=== PATIENT | female | born 1940 | race Caucasian/White ===

== ENCOUNTER 2020-07-11 11:01 | Inpatient (IN) | payer MEDICAID ==
[~2020-07-11] VITALS: Ht 162.6 cm; Wt 68.0 kg
[~2020-07-11 11:01] MED LIST: BENADRYL25 MG; COREG6.25 MG PO; DETROL LA4 MG; GLUCOPHAGE XR500 MG; K-DUR10 MEQ; LIPITOR40 MG; LOTENSIN40 MG; MACROBID 100 M100 M1 PO; NEURONTIN 300M300 M2 PO; PROPYLTHIOURACL; RANITIDINE 150150 M1; TRIAMTERENE-HC1 EAC1
[2020-07-11 11:10] VITALS: BP 183/73
[2020-07-11] MEDS ORDERED: TRAMADOL 50 MG50 MG PO (11:23)
[2020-07-11] MEDS ORDERED: PROPYLTHIOURACI50 MG PO (11:23)
[2020-07-11] MEDS ORDERED: SENNA-DOCUSATE1 EAC1 PO (11:23)
[2020-07-11] MEDS ORDERED: AMITIZA 24 MCG24 MC1 PO (11:24)
[2020-07-11] MEDS ORDERED: PULMICORT0.25 MG/2 INH (11:24)
[2020-07-11] MEDS ORDERED: ACETAMINOPHEN325 MG PO (11:24)
[2020-07-11] MEDS ORDERED: OMEPRAZOLE40 MG PO (11:24)
[2020-07-11 11:48] LABS: HEMATOCRIT 33.8 % (37.0-47.0); HEMOGLOBIN 10.9 gm/dL (12.0-15.0); MCH 27.6 pg (26.0-34.0); MCHC 32.4 g/dL (28.0-37.0); MCV 85.2 fL (80.0-100.0); NUCLEATED RBCS 0 /100WBC; PLATELET COUNT* 269 thou/uL (150-400); RBC 3.97 mil/uL (4.20-5.00); RDW-CV 15.1 % (10.5-14.5); WBC 7.2 thou/uL (4.0-11.0)
[2020-07-11 12:01] LABS: CALCIUM 8.9 mg/dL (8.5-10.1); CREATININE 0.8 mg/dL (0.6-1.3)
[2020-07-11 12:02] LABS: APTT 26.5 Seconds (25.0-31.3); PROTIME 10.9 Seconds (9.20-11.50)
[2020-07-11 12:20] LABS: ALBUMIN 3.2 g/dL (3.4-5.0); TOTAL BILIRUBIN 0.5 mg/dL (<0.1-1.0)
[2020-07-11 12:22] LABS: ABSOLUTE LYMPHOCYTES 2.7 thou/uL (0.8-5.3); ABSOLUTE MONOCYTES 0.6 thou/uL (0.0-1.2); ABSOLUTE NEUTROPHILS 2.9 thou/uL (1.6-8.1); PLATELET ESTIMATE ADEQUATE
[2020-07-11 13:30] LABS: PCO2 39.9 mmHg (35.0-45.0); PO2 60.7 mmHg (75.0-100.0); pH 7.423 (7.340-7.450)
[2020-07-11 14:53] LABS: URINE BILIRUBIN NEGATIVE (Negative); URINE BLOOD TRACE (Negative); URINE CLARITY CLEAR; URINE COLOR YELLOW; URINE GLUCOSE-RANDOM NEGATIVE (Negative); URINE KETONES NEGATIVE (Negative); URINE LEUKOCYTES-REFLEX NEGATIVE (Negative); URINE NITRITE-REFLEX NEGATIVE (Negative); URINE PROTEIN NEGATIVE (Negative); URINE SPECIFIC GRAVITY 1.015 (1.005-1.030); URINE UROBILINOGEN 0.2 E.U./dl (0.2-1.0)
[2020-07-11 15:29] VITALS: BP 145/68
[2020-07-11 20:00] VITALS: BP 159/67
[2020-07-12] VITALS: BP 145/74
[2020-07-12 00:53] LABS: HEMOGLOBIN 11.4 gm/dL (12.0-15.0); MCHC 33.4 g/dL (28.0-37.0); MCV 83.9 fL (80.0-100.0); MPV 7.9 fl. (7.2-11.1); RBC 4.06 mil/uL (4.20-5.00); RDW-CV 14.8 % (10.5-14.5); WBC 5.4 thou/uL (4.0-11.0)
[2020-07-12 01:05] LABS: ALBUMIN 3.1 g/dL (3.4-5.0); MAGNESIUM 1.6 mg/dL (1.8-2.4); POTASSIUM 3.6 mmol/L (3.5-5.1); TOTAL BILIRUBIN 0.4 mg/dL (<0.1-1.0); TOTAL PROTEIN 6.9 g/dL (6.4-8.2)
[2020-07-12 04:00] VITALS: BP 135/62
[2020-07-12 09:09] VITALS: BP 165/62
--- NOTE | 2020-07-12 09:22 | EKG ---
[place] [address] ELECTROCARDIOGRAM REPORT Name: GLEN SÁNCHEZ Room: [address] ADM IN M.R.#: [id number] Admission: 07/11/20 Attend Phys: Dasha Hernandez, Discharge: Date of : 40 Date of Service: 07/11/20 1115 Report #: [id number] THIS REPORT FOR: //name// [facility] ED Test Date: 2020-07-11 Test Time: 11:15:28 Pat Name: GLEN SÁNCHEZ Department: Room: [facility] Gender: F Crew Clerk: CCD : 1940 Requested By: Eric Cagle Order Number: [id number] MD: Beau Ireland Measurements Intervals [place] Rate: 62 P: -26 MD: 216 QRS: -7 QRSD: 103 T: 50 QT: 403 QTc: 410 Interpretive Statements Sinus rhythm Borderline prolonged MD interval Low voltage, precordial leads Baseline wander in lead(s) V1 Compared to ECG 04/16/2009 21:20:24 Low QRS voltage now present Electronically Signed On 07-12-2020 9:22:24 PRE SCHOOL MANAGER by Beau Ireland [email or web address] <ELECTRONICALLY SIGNED> By: Beau Ireland MD, FACC 07/12/20 0922 1115 1115 Beau Ireland MD, FAC /EPI
--- NOTE | 2020-07-12 13:49 | EKG ---
[place] [address] ELECTROCARDIOGRAM REPORT Name: GLEN SÁNCHEZ Room: [address] ADM IN M.R.#: [id number] Admission: 07/11/20 Attend Phys: Dasha Hernandez, Discharge: Date of : 40 Date of Service: 07/11/20 1856 Report #: [id number] THIS REPORT FOR: //name// [facility] Test Date: 2020-07-11 Test Time: 18:56:45 Pat Name: GLEN SÁNCHEZ Department: Room: [address] Gender: F Panel Laminator: UNKNOWN : 1940 Requested By: Dasha Hernandez Order Number: [id number] MD: Beau Ireland Measurements Intervals [place] Rate: 79 P: -19 ID: 219 QRS: -14 QRSD: 104 T: 7 QT: 388 QTc: 445 Interpretive Statements Sinus rhythm Borderline prolonged ID interval Compared to ECG 07/11/2020 11:15:28 No significant changes Electronically Signed On 07-12-2020 13:49:19 ENERGY CONSERVATION SPECIALIST by Beau Ireland [email or web address] <ELECTRONICALLY SIGNED> By: Beau Ireland MD, FACC 07/12/20 1349 1856 1856 Beau Ireland MD, FAC /EPI
[2020-07-12 15:04] VITALS: BP 149/64
--- NOTE | 2020-07-12 16:33 | 2DMMODE ---
[place] [address] 2 D/M-MODE ECHOCARDIOGRAM Name: GLEN SÁNCHEZ Room: [address] IN .R.#: [id number] Admission: 07/11/20 Attend Phys: Dasha Hernandez, Discharge: Date of : 40 Date of Service: 07/12/20 1632 Report #: [id number] THIS REPORT FOR: cc: Ed Conrad MD, Usman MD Blick,Beau Riggins MD [facility] ~ APPROVED REPORT Study performed: 07/12/2020 14:50:51 EXAM: Comprehensive 2D, Doppler, and color-flow Echocardiogram Patient Location: In-Patient Room #: 118 Status: routine BSA: 1.73 HR: 71 bpm BP: 165/62 mmHg Rhythm: NSR Other Information Study Quality: Good Indications Arrhythmia 2D Dimensions IVSd: 10.29 (7-11mm) LVOT Diam: 21.81 (18-24mm) LVDd: 37.38 mm PWd: 7.92 (7-11mm) Ascending Ao: 34.18 (22-36mm) LVDs: 20.90 (25-40mm) Aortic Root: 35.66 mm Volumes Left Atrial Volume (Systole) LA ESV Index: 20.32 mL/m2 Aortic Valve AoV Peak Neo.: 1.14 m/s AO Peak Gr.: 5.22 mmHg LVOT Max P.99 mmHg AO Mean Gr.: 3.01 mmHg LVOT Mean P.34 mmHg LVOT Max V: 0.86 m/s AO V2 VTI: 24.01 cm LVOT Mean V: 0.52 m/s MAGGIE (VTI): 3.20 cm2 LVOT V1 VTI: 20.56 cm AI [place]: 1.63 m/s2 [place] [address] 2 D/M-MODE ECHOCARDIOGRAM Name: GONZALOGLEN Room: [address] IN M.R.#: [id number] Admission: 07/11/20 Attend Phys: Dasha Hernandez, Discharge: Date of : 40 Date of Service: 07/12/20 1632 Report #: [id number] AI PHT: 563.77 ms Mitral Valve E/A Ratio: 0.63 MV Decel. Time: 296.29 ms MV E Max Neo.: 0.66 m/s MV PHT: 85.92 ms MVA (PHT): 2.56 cm2 TDI E/Lateral E': 7.33 E/Medial E': 6.60 Medial E' Neo.: 0.10 m/s Lateral E' Neo.: 0.09 m/s Pulmonary Valve PV Peak Neo.: 0.93 m/s PV Peak Gr.: 3.47 mmHg Left Ventricle The left ventricle is normal size. There is normal LV segmental wall motion. There is normal left ventricular wall thickness. Left ventricular systolic function is normal. The left ventricular ejection fraction is within the normal range. LVEF is 55-60%. Grade I - abnormal relaxation pattern. Right Ventricle The right ventricle is normal size. The right ventricular systolic function is normal. Atria The left atrium size is normal. The right atrium size is normal. Aortic Valve The aortic valve is normal in structure. Mild aortic regurgitation. There is no aortic valvular stenosis. Mitral Valve The mitral valve is normal in structure. Trace mitral regurgitation. No evidence of mitral valve stenosis. Tricuspid Valve The tricuspid valve is normal in structure. Trace tricuspid regurgitation. No pulmonary hypertension. Pulmonic Valve The pulmonary valve is normal in structure. [place] [address] 2 D/M-MODE ECHOCARDIOGRAM Name: GLEN SÁNCHEZ Room: [address] IN [facility]#: [id number] Admission: 07/11/20 Attend Phys: Dasha Hernandez, Discharge: Date of : 40 Date of Service: 07/12/20 1632 Report #: [id number] regurgitation. Great Vessels The aortic root is normal in size. IVC is normal in size and collapses >50% with inspiration. Pericardium There is no pericardial effusion. <Conclusion> Left ventricular systolic function is normal. The left ventricular ejection fraction is within the normal range. <ELECTRONICALLY SIGNED> By: Beau Ireland MD, FACC 07/12/20 1632 163 163 Beau Ireland MD, FACC /INF
[2020-07-12 18:16] VITALS: BP 142/83
[2020-07-13 06:03] VITALS: BP 151/70
[2020-07-13 06:33] LABS: ABSOLUTE BASOPHILS 0.1 thou/uL (0.0-0.2); ABSOLUTE EOSINOPHILS 0.2 thou/uL (0.0-0.7); ABSOLUTE LYMPHOCYTES 4.8 thou/uL (0.8-5.3); ABSOLUTE MONOCYTES 0.7 thou/uL (0.0-1.2); ABSOLUTE NEUTROPHILS 5.5 thou/uL (1.6-8.1); BASOPHILS 0.7 %; EOSINOPHILS 1.8 %; HEMATOCRIT 32.9 % (37.0-47.0); HEMOGLOBIN 10.9 gm/dL (12.0-15.0); LYMPHOCYTES 42.5 %; MCH 27.7 pg (26.0-34.0); MCHC 33.1 g/dL (28.0-37.0); MCV 83.7 fL (80.0-100.0); MONOCYTES 6.3 %; MPV 8.3 fl. (7.2-11.1); NUCLEATED RBCS 0 /100WBC; PLATELET COUNT* 298 thou/uL (150-400); POLYS 48.7 %; RBC 3.94 mil/uL (4.20-5.00); RDW-CV 15.2 % (10.5-14.5); WBC 11.3 thou/uL (4.0-11.0)
[2020-07-13 06:43] LABS: ALBUMIN 3.2 g/dL (3.4-5.0); CALCIUM 9.5 mg/dL (8.5-10.1); CREATININE 0.9 mg/dL (0.6-1.3); MAGNESIUM 1.6 mg/dL (1.8-2.4); TOTAL BILIRUBIN 0.5 mg/dL (<0.1-1.0); TOTAL PROTEIN 6.9 g/dL (6.4-8.2)
[2020-07-13 08:00] VITALS: BP 163/71
[2020-07-13] MEDS ORDERED: VENTOLIN HFA 1818 GM INH (09:42)
[2020-07-13] MEDS ORDERED: AZITHROMYCIN 2250 MG PO (09:42)
[2020-07-13] MEDS ORDERED: CEFDINIR300 MG PO (09:42)
[2020-07-13] MEDS ORDERED: PREDNISONE 10 M10 M1 PO (09:45)
[2020-07-13 14:50] VITALS: BP 163/71
--- NOTE | 2020-07-14 12:25 | CON ---
[address] [address] CONSULTATION Name: GLEN SÁNCHEZ Room: [address] IN M.R.#: [id number] Admission: 07/11/20 Attend Phys: Dasha Hernandez MD Discharge: 07/13/20 Date of : 40 Report #: [id number] THIS REPORT FOR: cc: Ed Conrad MD, Usman MD ~ Beau Ireland MD [facility] DATE OF SERVICE: 07/12/2020 CARDIOLOGY CONSULTATION HISTORY OF PRESENT ILLNESS: The history is obtained from the chart. Unfortunately, the patient speaks very little Vietnamese. There are no family members available. According to the chart, the patient was brought to the Emergency Room yesterday by family members. She apparently had been short of breath, coughing and had loose stools. She was given an inhaler by her primary care physician and was not getting worse. She denied any fever, sore throat, chest pain, edema, syncope. PAST MEDICAL HISTORY: She has a history of diabetes and hypertension. MEDICATIONS: Include carvedilol, Dyazide, Lipitor, benazepril, Neurontin, omeprazole, Pulmicort, metformin. ALLERGIES: She has no known drug allergies. SOCIAL HISTORY: Apparently, she is . She is originally from [place]. No history of smoking. REVIEW OF SYSTEMS: There is no history of stroke, liver disease, kidney disease, cancer, psychiatric illness. PHYSICAL EXAMINATION: GENERAL: Revealed an elderly female, who appeared in no distress. VITAL SIGNS: Showed blood pressure 140/70, pulse 60. She is afebrile. HEENT: She was anicteric. Conjunctivae are pink. Mucous membranes moist. NECK: Veins do not appear distended. No carotid bruits. Neck supple. CHEST: Revealed expiratory wheezes. CARDIOVASCULAR: Regular rate and rhythm. ABDOMEN: Soft. EXTREMITIES: Had no edema. Dorsalis pedis pulse 1+ bilaterally. SKIN: Cool and dry. NEUROLOGIC: Nonfocal. Her ECG on admission showed a sinus rhythm, normal QT interval, [place] [address] CONSULTATION Name: GLEN SÁNCHEZ Room: [address] IN [facility].#: [id number] Admission: 07/11/20 Attend Phys: Dasha Hernandez MD Discharge: 07/13/20 Date of : 40 Report #: [id number]-segment changes. Her workup, she had a portable chest x-ray in the Emergency Room that showed possible infiltrate, normal heart size. LABORATORY DATA: Sodium 131, creatinine 1.0. Liver function studies were normal. Troponins all 0.06. BNP 306. White blood cell count 5.4, hematocrit 34. IMPRESSION AND RECOMMENDATIONS: 1. Pneumonia. 2. Abnormal monitor. On the monitor, the patient appeared to have a wide complex tachycardia, although on further review, this appears to be artifact. Recommend echocardiogram. 3. Diabetes. 4. Hypertension. The patient is on JASON inhibitor and beta jessica. 5. Hyperlipidemia. The patient is on a statin drug. <ELECTRONICALLY SIGNED> By: Beau Ireland MD, FACC 07/14/20 1225 1409 1940Dathong Ireland MD, FAC /nt
== END 2020-07-13 15:10 | disposition home or self-care (01) | DRG 177 ==
LOC: M.ERS 11:01 → M.ORTHSURG 14:05 → M.TBA-ER 14:05 → M.ORTHSURG 15:32
PROVIDERS: Emergency Medicine Emergency Medical Services; ADMIT Internal Medicine; ATTEND Internal Medicine
DX: J15.6 Pneumonia due to other Gram-negative bacteria (principal); J96.01 Acute respiratory failure with hypoxia; J45.901 Unspecified asthma with (acute) exacerbation; I10 Essential (primary) hypertension; E78.5 Hyperlipidemia, unspecified; Z20.822 Contact with and (suspected) exposure to COVID-19; E11.9 Type 2 diabetes mellitus without complications; E78.00 Pure hypercholesterolemia, unspecified; K21.9 Gastro-esophageal reflux disease without esophagitis; Z79.899 Other long term (current) drug therapy; Z79.84 Long term (current) use of oral hypoglycemic drugs

== ENCOUNTER 2020-10-14 19:16 | Inpatient (IN) | payer MEDICAID ==
[~2020-10-14] VITALS: Ht 160 cm; Wt 66.7 kg
[~2020-10-14 19:16] MED LIST changes: +ACETAMINOPHEN325 MG PO; +AMITIZA 24 MCG24 MC1 PO; +AZITHROMYCIN 2250 MG PO; +CEFDINIR300 MG PO; +OMEPRAZOLE40 MG PO; +PREDNISONE 10 M10 M1 PO; +PROPYLTHIOURACI50 MG PO; +PULMICORT0.25 MG/2 INH; +SENNA-DOCUSATE1 EAC1 PO; +TRAMADOL 50 MG50 MG PO; +VENTOLIN HFA 1818 GM INH
[2020-10-14 19:37] VITALS: BP 165/71
[2020-10-14 19:55] LABS: HEMATOCRIT 30.6 % (37.0-47.0); MCH 26.7 pg (26.0-34.0); MCHC 32.5 g/dL (28.0-37.0); MCV 82.3 fL (80.0-100.0); MPV 8.8 fl. (7.2-11.1); NUCLEATED RBCS 0 /100WBC; PLATELET COUNT* 273 thou/uL (150-400); RBC 3.73 mil/uL (4.20-5.00); RDW-CV 16.6 % (10.5-14.5); WBC 12.7 thou/uL (4.0-11.0)
[2020-10-14 20:05] LABS: CALCIUM 8.1 mg/dL (8.5-10.1); CREATININE 1.1 mg/dL (0.6-1.3)
[2020-10-14 20:10] LABS: ALBUMIN 2.4 g/dL (3.4-5.0); MAGNESIUM 1.1 mg/dL (1.8-2.4); TOTAL BILIRUBIN 0.8 mg/dL (<0.1-1.0); TOTAL PROTEIN 6.8 g/dL (6.4-8.2)
[2020-10-14 20:10] LABS: BE -1.4 mmol/L (-2 to +3); PCO2 30.1 mmHg (35.0-45.0); PO2 81.9 mmHg (75.0-100.0); pH 7.471 (7.340-7.450)
[2020-10-14 21:15] LABS: ABSOLUTE LYMPHOCYTES 1.9 thou/uL (0.8-5.3); ABSOLUTE MONOCYTES 0.8 thou/uL (0.0-1.2); ANISOCYTOSIS 1+; OVALOCYTES Occasional; PLATELET ESTIMATE ADEQUATE
[2020-10-14 21:19] LABS: URINE BILIRUBIN NEGATIVE (Negative); URINE BLOOD 2+ (Negative); URINE CLARITY CLEAR; URINE COLOR YELLOW; URINE GLUCOSE-RANDOM NEGATIVE (Negative); URINE KETONES NEGATIVE (Negative); URINE LEUKOCYTES-REFLEX TRACE (Negative); URINE NITRITE-REFLEX NEGATIVE (Negative); URINE PROTEIN 1+ (Negative); URINE SPECIFIC GRAVITY 1.015 (1.005-1.030); URINE UROBILINOGEN 0.2 E.U./dl (0.2-1.0)
[2020-10-14 21:27] LABS: MUCUS None Seen strn/LPF (None Seen); SQUAMOUS >10 Many /LPF (0-3)
[2020-10-14 21:28] LABS: CASTS None Seen /LPF (None Seen); CRYSTALS None Seen /LPF (None Seen); URINE RBC 3-10 Few /HPF (0-2); URINE WBC-REFLEX 0-5 Rare /HPF (0-5)
[2020-10-15] VITALS (7 sets, daily range): BP systolic 122–167; BP diastolic 51–70
--- NOTE | 2020-10-15 12:30 | EKG ---
[place] [address] ELECTROCARDIOGRAM REPORT Name: GLEN SÁNCHEZ Room: [address] ADM IN M.R.#: [id number] Admission: 10/15/20 Attend Phys: Dasha Hernandez, Discharge: Date of : 40 Date of Service: 10/14/201925 Report #: [id number] THIS REPORT FOR: //name// [facility] ED Test Date: 2020-10-14 Test Time: 19:26:12 Pat Name: GLEN SÁNCHEZ Department: Room: [address] Gender: F Hopper Filler: NE : 1940 Requested By: Dasha Hernandez Order Number: [id number] MD: Beau Ireland Measurements Intervals [place] Rate: 77 P: 15 FL: 197 QRS: -2 QRSD: 82 T: 24 QT: 340 QTc: 385 Interpretive Statements Sinus rhythm Compared to ECG 07/11/2020 18:56:45 No significant changes Electronically Signed On 10-15-2020 12:30:40 CDT by Beau Ireland [email or web address] <ELECTRONICALLY SIGNED> By: Beau Ireland MD, [facility] 10/15/20 1230 1926 Beau Ireland MD, [facility] /EPI
[2020-10-16] VITALS: BP 144/62
[2020-10-16 03:59] LABS: HEMATOCRIT 26.7 % (37.0-47.0); HEMOGLOBIN 8.7 gm/dL (12.0-15.0); MCH 26.9 pg (26.0-34.0); MCHC 32.5 g/dL (28.0-37.0); MCV 82.6 fL (80.0-100.0); MPV 8.3 fl. (7.2-11.1); RBC 3.23 mil/uL (4.20-5.00); RDW-CV 16.5 % (10.5-14.5); WBC 11.3 thou/uL (4.0-11.0)
[2020-10-16 04:00] VITALS: BP 149/66
[2020-10-16 04:13] LABS: CALCIUM 7.3 mg/dL (8.5-10.1); CREATININE 0.9 mg/dL (0.6-1.3); POTASSIUM 3.2 mmol/L (3.5-5.1)
[2020-10-16 08:00] VITALS: BP 156/64; BP 183/57
[2020-10-16 12:00] VITALS: BP 145/62
[2020-10-16 16:00] VITALS: BP 143/66
[2020-10-16 20:00] VITALS: BP 153/70
[2020-10-17 00:02] VITALS: BP 172/68
[2020-10-17 02:00] VITALS: BP 144/54
[2020-10-17 05:17] VITALS: BP 125/56
[2020-10-17 05:51] LABS: HEMATOCRIT 29.1 % (37.0-47.0); HEMOGLOBIN 9.7 gm/dL (12.0-15.0); MCH 27.2 pg (26.0-34.0); MCHC 33.4 g/dL (28.0-37.0); MCV 81.6 fL (80.0-100.0); MPV 8.1 fl. (7.2-11.1); RBC 3.57 mil/uL (4.20-5.00); RDW-CV 16.9 % (10.5-14.5); WBC 9.6 thou/uL (4.0-11.0)
[2020-10-17 05:56] LABS: CALCIUM 8.2 mg/dL (8.5-10.1); CREATININE 0.9 mg/dL (0.6-1.3)
[2020-10-17 08:00] VITALS: BP 139/63
[2020-10-17] MEDS ORDERED: CEFDINIR300 MG PO (09:27)
[2020-10-17 11:19] VITALS: BP 139/63
== END 2020-10-17 12:20 | disposition home or self-care (01) | DRG 689 ==
LOC: M.ERS 19:16 → M.TBA-ER 10-15 00:02 → M.2W 10-15 00:58
PROVIDERS: Family Medicine; Personal Emergency Response Attendant; ADMIT Internal Medicine; ATTEND Internal Medicine
DX: N39.0 Urinary tract infection, site not specified (principal); G93.41 Metabolic encephalopathy; E87.1 Hypo-osmolality and hyponatremia; I10 Essential (primary) hypertension; E78.00 Pure hypercholesterolemia, unspecified; K21.9 Gastro-esophageal reflux disease without esophagitis; E11.9 Type 2 diabetes mellitus without complications; R05 Cough; E78.5 Hyperlipidemia, unspecified; E87.6 Hypokalemia; B96.20 Unspecified Escherichia coli [E. coli] as the cause of diseases classified elsewhere; J30.2 Other seasonal allergic rhinitis; Z20.822 Contact with and (suspected) exposure to COVID-19; Z79.899 Other long term (current) drug therapy

== ENCOUNTER 2020-11-27 13:51 | Emergency (ER) | payer MEDICAID ==
[~2020-11-27] VITALS: Ht 157.5 cm; Wt 60.8 kg
[~2020-11-27 13:51] MED LIST changes: +GLUCOPHAGE XR500 M1 PO; -GLUCOPHAGE XR500 MG; -LIPITOR40 MG; +LIPITOR40 MG PO; -PULMICORT0.25 MG/2 INH; +PULMICORT0.5 MG/2 M INH; +TRIAMTERENE-HC1 EAC1 PO
[2020-11-27] MEDS ORDERED: SINGULAIR 10 MG10 MG PO (14:04)
[2020-11-27 14:44] LABS: HEMATOCRIT 32.9 % (37.0-47.0); HEMOGLOBIN 10.8 gm/dL (12.0-15.0); MCH 27.7 pg (26.0-34.0); MCHC 32.7 g/dL (28.0-37.0); MCV 84.5 fL (80.0-100.0); MPV 7.8 fl. (7.2-11.1); NUCLEATED RBCS 0 /100WBC; PLATELET COUNT* 264 thou/uL (150-400); RBC 3.89 mil/uL (4.20-5.00); RDW-CV 16.2 % (10.5-14.5); WBC 8.9 thou/uL (4.0-11.0)
[2020-11-27 14:47] LABS: CALCIUM 8.2 mg/dL (8.5-10.1); CREATININE 0.9 mg/dL (0.6-1.3)
[2020-11-27 14:58] LABS: ALBUMIN 3.2 g/dL (3.4-5.0); TOTAL BILIRUBIN 0.4 mg/dL (<0.1-1.0); TOTAL PROTEIN 7.2 g/dL (6.4-8.2)
[2020-11-27 15:16] LABS: ABSOLUTE EOSINOPHILS 1.8 thou/uL (0.0-0.7); ABSOLUTE LYMPHOCYTES 3.9 thou/uL (0.8-5.3); ABSOLUTE MONOCYTES 0.4 thou/uL (0.0-1.2); ABSOLUTE NEUTROPHILS 2.8 thou/uL (1.6-8.1); PLATELET ESTIMATE ADEQUATE
[2020-11-27 15:17] LABS: BURR CELLS 1+; OVALOCYTES 1+
[2020-11-27] MEDS ORDERED: TESSALON PERLE100 M1 PO (17:26)
[2020-11-27] MEDS ORDERED: IPRAT-ALBUT 0.5-3 ML INH (17:26)
[2020-11-27] MEDS ORDERED: MUCINEX DM ER1 EACH PO (17:26)
[2020-11-27 17:34] VITALS: BP 125/66
== END 2020-11-27 17:35 | disposition home or self-care (01) ==
LOC: M.ERS 13:51
PROVIDERS: Physician Assistant
DX: J06.9 Acute upper respiratory infection, unspecified (principal); Z20.822 Contact with and (suspected) exposure to COVID-19; J30.2 Other seasonal allergic rhinitis; J45.909 Unspecified asthma, uncomplicated; E11.9 Type 2 diabetes mellitus without complications; E78.5 Hyperlipidemia, unspecified; I10 Essential (primary) hypertension

== ENCOUNTER 2020-11-30 07:34 | Inpatient (IN) | payer MEDICAID ==
[~2020-11-30] VITALS: Ht 167.6 cm; Wt 59.5 kg
[~2020-11-30 07:34] MED LIST changes: +IPRAT-ALBUT 0.5-3 ML INH; +MUCINEX DM ER1 EACH PO; +SINGULAIR 10 MG10 MG PO; +TESSALON PERLE100 M1 PO
[2020-11-30 07:39] VITALS: BP 112/79
[2020-11-30 08:44] LABS: HEMATOCRIT 30.5 % (37.0-47.0); HEMOGLOBIN 10.1 gm/dL (12.0-15.0); MCH 27.9 pg (26.0-34.0); MCHC 33.1 g/dL (28.0-37.0); MCV 84.1 fL (80.0-100.0); MPV 8.3 fl. (7.2-11.1); NUCLEATED RBCS 0 /100WBC; PLATELET COUNT* 225 thou/uL (150-400); RBC 3.63 mil/uL (4.20-5.00); RDW-CV 16.3 % (10.5-14.5); WBC 8.7 thou/uL (4.0-11.0)
[2020-11-30 09:04] LABS: CALCIUM 8.2 mg/dL (8.5-10.1); CREATININE 0.9 mg/dL (0.6-1.3); POTASSIUM 4.2 mmol/L (3.5-5.1)
[2020-11-30 09:09] LABS: APTT 20.9 Seconds (25.0-31.3); PROTIME 10.8 Seconds (9.20-11.50)
[2020-11-30 09:15] LABS: ALBUMIN 3.1 g/dL (3.4-5.0); TOTAL BILIRUBIN 0.3 mg/dL (<0.1-1.0)
[2020-11-30 09:18] LABS: ABSOLUTE EOSINOPHILS 2.3 thou/uL (0.0-0.7); ABSOLUTE LYMPHOCYTES 4.2 thou/uL (0.8-5.3); ABSOLUTE MONOCYTES 0.3 thou/uL (0.0-1.2); ABSOLUTE NEUTROPHILS 1.8 thou/uL (1.6-8.1); BURR CELLS 1+; OVALOCYTES 1+; POLYCHROMASIA 1+
--- NOTE | 2020-11-30 10:54 | NUR ---
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
--- NOTE | 2020-11-30 12:37 | EKG ---
[place] [address] ELECTROCARDIOGRAM REPORT Name: GLEN SÁNCHEZ Room: [place] [address] ADM IN M.R.#: [id number] Admission: 11/30/20 Attend Phys: Dasha Hernandez, Discharge: Date of : 40 Date of Service: 11/30/20 0740 Report #: [id number] THIS REPORT FOR: //name// [facility] ED Test Date: 2020-11-30 Test Time: 07:40:47 Pat Name: GLEN SÁNCHEZ Department: Room: [facility] Gender: F Ratchet Setter: ANA : 1940 Requested By: Patrick Augustin Order Number: [id number] MD: Rayshawn Kline Measurements Intervals [place] Rate: 63 P: 34 MD: 221 QRS: 13 QRSD: 110 T: 42 QT: 409 QTc: 419 Interpretive Statements Sinus rhythm Prolonged MD interval Baseline wander in lead(s) V2 Compared to ECG 10/14/2020 19:26:12 First degree AV block now present Electronically Signed On 11-30-2020 12:37:30 CDT by Rayshawn Kline [email or web address] <ELECTRONICALLY SIGNED> By: Rayshawn Kline MD, [facility] 11/30/20 1237 0740 0740 Rayshawn Kline MD, [facility] /EPI
[2020-11-30 13:23] VITALS: BP 131/62
[2020-11-30] MEDS ORDERED: PROAIR HFA8.5 GM INH (14:36)
[2020-11-30] MEDS ORDERED: NEURONTIN300 MG PO (14:39)
[2020-11-30] MEDS ORDERED: VOLTAREN GEL 1100 GM TOP (14:43)
[2020-11-30] MEDS ORDERED: PREDNISONE 20 M20 M1 PO (14:43)
[2020-11-30] MEDS ORDERED: KLOR-CON 10 ER10 MEQ PO (14:44)
[2020-11-30] MEDS ORDERED: ALBUTEROL2.5 MG/3 M INH (14:45)
[2020-11-30] MEDS ORDERED: ASPIRIN EC81 M1 PO (14:45)
[2020-11-30] MEDS ORDERED: BUTALB-APAP-CA1 EACH PO (14:45)
[2020-11-30] MEDS ORDERED: CETIRIZINE HCL5 MG PO (14:46)
[2020-11-30] MEDS ORDERED: PREMARIN30 GM VAG (14:48)
[2020-11-30] MEDS ORDERED: PATADAY5 ML OPHTHALMIC (14:51)
[2020-11-30 20:00] VITALS: BP 139/76
[2020-11-30 23:01] VITALS: BP 139/65
[2020-12-01 04:15] VITALS: BP 153/66
[2020-12-01 05:55] LABS: URINE BILIRUBIN NEGATIVE (Negative); URINE BLOOD TRACE (Negative); URINE CLARITY CLEAR; URINE COLOR YELLOW; URINE GLUCOSE-RANDOM 1+ (Negative); URINE KETONES TRACE (Negative); URINE LEUKOCYTES-REFLEX NEGATIVE (Negative); URINE NITRITE-REFLEX NEGATIVE (Negative); URINE PROTEIN TRACE (Negative); URINE UROBILINOGEN 0.2 E.U./dl (0.2-1.0)
[2020-12-01 09:01] VITALS: BP 153/60
[2020-12-01 12:00] VITALS: BP 128/52
--- NOTE | 2020-12-01 13:52 | NUR ---
CM spoke with Pt's grandson, Pt only speak Wilman. Pt resides at home with family. Independent and family assists as needed. Pt has a cane that she can use for mobility. No hx of HH or SNF. Plan to wean o2. Anticipate dc to home tomorrow. CM following.
--- NOTE | 2020-12-01 16:21 | NUR ---
ASSUMED PT CARE AT 0730. PT IS A&O X4. FAMILY PRESENT AND INTERPRETS FOR PT. ASSESSMENT COMPLETED AND PT NOTED TO HAVE AN INFILTRATED IV WHICH WAS DC'D AND NEW ONE PLACED IN LFA. PT C/O HEADACHE AND PRN TYLENOL GIVEN WITH EFFECTIVENESS. PT IS CONTINENT OF B&B. UP TO BATHROOM WITH CANE AND STAND BY ASSIST. SAFETY MESURES IN PLACE. MEDICATIONS ADMINISTERED ORDERED.
[2020-12-01 20:00] VITALS: BP 139/64
[2020-12-01 23:49] VITALS: BP 142/60
[2020-12-02 03:30] VITALS: BP 155/74
[2020-12-02 08:35] VITALS: BP 125/71
[2020-12-02 12:35] VITALS: BP 155/59
--- NOTE | 2020-12-02 13:43 | NUR ---
Med surg status. Anticipate dc in a few days. Monitor labs.
[2020-12-02 15:52] VITALS: BP 174/80
--- NOTE | 2020-12-02 18:10 | NUR ---
PT RESTING AT THIS TIME.PT HAD C/O NAUSEA AND DID HAVE EMESIS AFTER GIVEN GI COCKTAIL. PT BP WAS ELEVATED.PHYSICIAN CALLED AND TROPONIN COLLECTED.TROPONIN NEGATIVE. PT GIVEN IV ATIVAN WITH GOOD RESULTS. NOTHING FURTHER AT THIS TIME.CLWR.WCTM
[2020-12-02 20:00] VITALS: BP 164/77
[2020-12-03] VITALS: BP 155/69
[2020-12-03 09:32] VITALS: BP 119/51
[2020-12-03 11:34] LABS: ABSOLUTE LYMPHOCYTES 3.2 thou/uL (0.8-5.3); ABSOLUTE MONOCYTES 1.2 thou/uL (0.0-1.2); ABSOLUTE NEUTROPHILS 5.9 thou/uL (1.6-8.1); BASOPHILS 0.3 %; EOSINOPHILS 0.2 %; HEMATOCRIT 31.1 % (37.0-47.0); HEMOGLOBIN 10.2 gm/dL (12.0-15.0); LYMPHOCYTES 30.8 %; MCH 27.6 pg (26.0-34.0); MCHC 32.9 g/dL (28.0-37.0); MCV 84.1 fL (80.0-100.0); MONOCYTES 11.9 %; MPV 7.9 fl. (7.2-11.1); NUCLEATED RBCS 0 /100WBC; PLATELET COUNT* 273 thou/uL (150-400); POLYS 56.8 %; RDW-CV 16.4 % (10.5-14.5); WBC 10.5 thou/uL (4.0-11.0)
--- NOTE | 2020-12-03 12:38 | NUR ---
Pt to dc to home tomorrow with family, no needs.
[2020-12-03 15:03] VITALS: BP 127/57
--- NOTE | 2020-12-03 17:57 | NUR ---
PATIENT ARRIVED FROM TELEMETRY UNIT THIS EVENING. PATIENT SETTLED TO ROOM. PATIENT DOES NOT SPEAK MALTESE, I TALKED WITH GRANDSON ON THE PHONE. PATIENT IS UP WITH ONE TO BATHROOM. PATIENT HAS COMPLAINTS OF STOMACH TIGHTNESS, HOT PACK GIVEN. CALL LIGHT WITHIN REACH. BED ALARM ON. WILL CONTINUE TO MONITOR.
[2020-12-03 19:45] VITALS: BP 128/61
[2020-12-04 04:41] LABS: ABSOLUTE LYMPHOCYTES 3.1 thou/uL (0.8-5.3); ABSOLUTE MONOCYTES 0.7 thou/uL (0.0-1.2); ABSOLUTE NEUTROPHILS 4.3 thou/uL (1.6-8.1); BASOPHILS 0.1 %; EOSINOPHILS 0.1 %; HEMATOCRIT 30.7 % (37.0-47.0); HEMOGLOBIN 10.2 gm/dL (12.0-15.0); LYMPHOCYTES 38.1 %; MCH 27.8 pg (26.0-34.0); MCHC 33.1 g/dL (28.0-37.0); MCV 83.9 fL (80.0-100.0); MONOCYTES 8.9 %; NUCLEATED RBCS 0 /100WBC; PLATELET COUNT* 256 thou/uL (150-400); POLYS 52.8 %; RBC 3.67 mil/uL (4.20-5.00); RDW-CV 16.4 % (10.5-14.5); WBC 8.2 thou/uL (4.0-11.0)
--- NOTE | 2020-12-04 05:02 | NUR ---
PT SON AND GRANDSON HERE AT CHANGE OF SHIFT. PT DENIED PAIN, SON SAID SHE STATES THAT SHE WAS "NERVOUS" MOVING TO A NEW ROOM AND SHE SAID IT LOOKED "LIKE SHE WAS ON A FARM" OUT THE WINDOW. PT INTRODUCED TO NURSING STAFF AND REASSURANCE GIVEN. TAKES PILLS WHOLE WITH WATER, XANAX GIVEN AT HS WITH GOOD RESULT. ROOM AIR SAT 96%. LUNGS WITH FAINT WHEEZES, CONGESTED COUGH SOMETIME PRODUCTIVE BUT SPUTUM NOT SEEN-SPAT IN KLEENEX. UP WITH CANE AND MIN ASSIST OF ONE TO BSC TO VOID A FEW TIMES OVERNIGHT, WEARS BRIEFS FOR OCC STRESS INCONTINENCE. HS ACCUCHECK 156, METFORMIN ON HOLD DUE TO CTA 12/01. AM LABS DRAWN. PT DOES NOT SPEAK KYRGYZ, ABLE TO COMMUNICATE NEEDS OVERNIGHT. HOPEFUL FOR DC HOME WITH FAMILY TODAY.
[2020-12-04 08:00] VITALS: BP 109/61
[2020-12-04] MEDS ORDERED: VITAMIN B-12500 MCG PO (08:13)
[2020-12-04] MEDS ORDERED: IRON325 PO (08:13)
[2020-12-04] MEDS ORDERED: FOLIC ACID1 MG PO (08:13)
[2020-12-04] MEDS ORDERED: XANAX 0.25 MG0.25 MG PO (09:25)
[2020-12-04] MEDS ORDERED: MIRALAX119 GM PO (09:25)
[2020-12-04 10:50] VITALS: BP 109/61
--- NOTE | 2020-12-04 12:11 | NUR ---
PATIENT DISCHARGED AT THIS TIME VIA WHEELCHAIR, ACCOMPANIED BY NURSE COLE AND GRANDSON. IV DC'D, SITE COVERED WITH COTTON AND BANDAID. DISCHARGE INSTRUCTIONS REVIEWED AT THIS TIME WITH GRANDSON DUE TO LANGUAGE BARRIER, ACKNOWLEDGED UNDERSTANDING. ALL QUESTIONS AND CONCERNS ADDRESSED.
== END 2020-12-04 12:14 | disposition home or self-care (01) | DRG 189 ==
LOC: M.ERS 07:34 → M.TBA-ER 09:21 → M.2W 13:24 → M.ORTHSURG 12-03 16:00
PROVIDERS: Family Medicine; Internal Medicine; ADMIT Internal Medicine; ATTEND Internal Medicine
DX: J96.01 Acute respiratory failure with hypoxia (principal); J45.901 Unspecified asthma with (acute) exacerbation; E11.9 Type 2 diabetes mellitus without complications; E05.90 Thyrotoxicosis, unspecified without thyrotoxic crisis or storm; D64.9 Anemia, unspecified; E78.5 Hyperlipidemia, unspecified; F41.9 Anxiety disorder, unspecified; I10 Essential (primary) hypertension; Z20.822 Contact with and (suspected) exposure to COVID-19; Z79.84 Long term (current) use of oral hypoglycemic drugs; Z79.82 Long term (current) use of aspirin

== ENCOUNTER 2021-01-15 17:51 | Inpatient (IN) | payer MEDICAID ==
[~2021-01-15] VITALS: Ht 157.5 cm; Wt 58.5 kg
[~2021-01-15 17:51] MED LIST changes: +ALBUTEROL2.5 MG/3 M INH; +ASPIRIN EC81 M1 PO; +BUTALB-APAP-CA1 EACH PO; +CETIRIZINE HCL5 MG PO; +FOLIC ACID1 MG PO; +IRON325 PO; +KLOR-CON 10 ER10 MEQ PO; +MIRALAX119 GM PO; +NEURONTIN300 MG PO; +PATADAY5 ML OPHTHALMIC; +PREDNISONE 20 M20 M1 PO; +PREMARIN30 GM VAG; +PROAIR HFA8.5 GM INH; +VITAMIN B-12500 MCG PO; +VOLTAREN GEL 1100 GM TOP; +XANAX 0.25 MG0.25 MG PO
[2021-01-15 18:09] VITALS: BP 215/95
[2021-01-15] MEDS ORDERED: KLOR-CON 1010 MEQ PO (18:19)
[2021-01-15 18:36] LABS: ABSOLUTE BASOPHILS 0.1 thou/uL (0.0-0.2); ABSOLUTE EOSINOPHILS 4.3 thou/uL (0.0-0.7); ABSOLUTE MONOCYTES 0.9 thou/uL (0.0-1.2); ABSOLUTE NEUTROPHILS 5.3 thou/uL (1.6-8.1); EOSINOPHILS 31.7 %; HEMATOCRIT 35.4 % (37.0-47.0); HEMOGLOBIN 11.8 gm/dL (12.0-15.0); MCH 27.5 pg (26.0-34.0); MCHC 33.3 g/dL (28.0-37.0); MCV 82.7 fL (80.0-100.0); MONOCYTES 6.5 %; MPV 7.7 fl. (7.2-11.1); NUCLEATED RBCS 0 /100WBC; PLATELET COUNT* 331 thou/uL (150-400); POLYS 38.8 %; RBC 4.28 mil/uL (4.20-5.00); WBC 13.5 thou/uL (4.0-11.0)
[2021-01-15 18:57] LABS: CALCIUM 8.5 mg/dL (8.5-10.1); CREATININE 0.7 mg/dL (0.6-1.3); POTASSIUM 5.7 mmol/L (3.5-5.1)
[2021-01-15 19:01] LABS: ALBUMIN 3.5 g/dL (3.4-5.0); TOTAL BILIRUBIN 0.7 mg/dL (<0.1-1.0); TOTAL PROTEIN 7.8 g/dL (6.4-8.2)
[2021-01-15 21:54] VITALS: BP 108/87
[2021-01-15 22:30] VITALS: BP 156/68
[2021-01-16 04:00] VITALS: BP 144/71
[2021-01-16 05:23] LABS: ALBUMIN 3.1 g/dL (3.4-5.0); CALCIUM 8.6 mg/dL (8.5-10.1); CREATININE 0.9 mg/dL (0.6-1.3); MAGNESIUM 1.3 mg/dL (1.8-2.4); TOTAL BILIRUBIN 0.5 mg/dL (<0.1-1.0); TOTAL PROTEIN 7.3 g/dL (6.4-8.2)
[2021-01-16 05:24] LABS: HEMATOCRIT 32.8 % (37.0-47.0); HEMOGLOBIN 11.2 gm/dL (12.0-15.0); MCH 28.1 pg (26.0-34.0); MCHC 34.2 g/dL (28.0-37.0); MCV 82.1 fL (80.0-100.0); MPV 8.5 fl. (7.2-11.1); RBC 3.99 mil/uL (4.20-5.00); WBC 4.1 thou/uL (4.0-11.0)
[2021-01-16 09:07] VITALS: BP 135/69
[2021-01-16 12:20] VITALS: BP 154/687
--- NOTE | 2021-01-16 12:48 | EKG ---
[place] [address] ELECTROCARDIOGRAM REPORT Name: GLEN SÁNCHEZ Room: [address] ADM IN M.R.#: [id number] Admission: 01/15/21 Attend Phys: Dasha Hernandez, Discharge: Date of : 40 Date of Service: 01/15/211812 Report #: [id number] THIS REPORT FOR: //name// [facility] ED Test Date: 2021-01-15 Test Time: 18:13:08 Pat Name: GLEN SÁNCHEZ Department: Room: [facility] Gender: F Consumer Relations Complaint Clerk: SARAH : 1940 Requested By: Patrick Augustin Order Number: [id number] MD: Orestes Valdivia Measurements Intervals [place] Rate: 71 P: -26 CO: 226 QRS: -2 QRSD: 104 T: 35 QT: 391 QTc: 425 Interpretive Statements Sinus rhythm Prolonged [place] interval Low voltage, precordial leads Baseline wander in lead(s) V6 Compared to ECG 11/30/2020 07:40:47 Low QRS voltage now present Electronically Signed On 01-16-2021 12:48:37 CDT by Orestes Valdivia [email or web address] <ELECTRONICALLY SIGNED> By: Orestes Valdivia MD, FACC 01/16/21 1248 12 12 Orestes Valdivia MD, FAC /EPI
[2021-01-16 17:09] VITALS: BP 130/60
[2021-01-16 20:00] VITALS: BP 151/76
[2021-01-17] VITALS: BP 137/66
[2021-01-17 04:00] VITALS: BP 145/64
[2021-01-17 04:16] LABS: HEMATOCRIT 29.4 % (37.0-47.0); HEMOGLOBIN 9.9 gm/dL (12.0-15.0); MCH 27.5 pg (26.0-34.0); MCHC 33.8 g/dL (28.0-37.0); MCV 81.5 fL (80.0-100.0); MPV 7.7 fl. (7.2-11.1); RBC 3.61 mil/uL (4.20-5.00); WBC 13.3 thou/uL (4.0-11.0)
[2021-01-17 04:33] LABS: ALBUMIN 2.8 g/dL (3.4-5.0); CALCIUM 8.1 mg/dL (8.5-10.1); CREATININE 0.9 mg/dL (0.6-1.3); POTASSIUM 3.1 mmol/L (3.5-5.1); TOTAL BILIRUBIN 0.4 mg/dL (<0.1-1.0); TOTAL PROTEIN 6.4 g/dL (6.4-8.2)
[2021-01-17 09:21] VITALS: BP 153/63
[2021-01-17 12:00] VITALS: BP 146/52
[2021-01-17 16:00] VITALS: BP 161/76
[2021-01-17 20:00] VITALS: BP 112/76
[2021-01-18] VITALS (8 sets, daily range): BP systolic 119–165; BP diastolic 51–70
[2021-01-18 05:22] LABS: HEMATOCRIT 27.2 % (37.0-47.0); HEMOGLOBIN 9.1 gm/dL (12.0-15.0); MCH 27.1 pg (26.0-34.0); MCHC 33.4 g/dL (28.0-37.0); MCV 80.9 fL (80.0-100.0); RBC 3.36 mil/uL (4.20-5.00); RDW-CV 15.9 % (10.5-14.5); WBC 11.2 thou/uL (4.0-11.0)
[2021-01-18 05:33] LABS: POTASSIUM 3.3 mmol/L (3.5-5.1)
[2021-01-18 05:34] LABS: CALCIUM 8.2 mg/dL (8.5-10.1); CREATININE 0.9 mg/dL (0.6-1.3); MAGNESIUM 1.3 mg/dL (1.8-2.4)
[2021-01-18] MEDS ORDERED: PREDNISONE 10 M10 M1 PO (09:45)
[2021-01-18] MEDS ORDERED: IPRAT-ALBUT 0.5-3 ML INH (09:45)
[2021-01-18] MEDS ORDERED: LEVOFLOXACIN250 MG PO (09:45)
[2021-01-18] MEDS ORDERED: TESSALON PERLE100 MG PO (09:45)
[2021-01-18] MEDS ORDERED: BROVANA15 MCG/2 M INH (09:45)
== END 2021-01-18 19:00 | disposition home or self-care (01) | DRG 189 ==
LOC: M.ERS 17:51 → M.TBA-ER 18:28 → M.2W 22:24
PROVIDERS: Family Medicine; ADMIT Internal Medicine; ATTEND Internal Medicine
DX: J96.01 Acute respiratory failure with hypoxia (principal); J45.901 Unspecified asthma with (acute) exacerbation; E11.9 Type 2 diabetes mellitus without complications; E78.5 Hyperlipidemia, unspecified; I10 Essential (primary) hypertension; E83.42 Hypomagnesemia; Z20.822 Contact with and (suspected) exposure to COVID-19; R07.89 Other chest pain; Z79.82 Long term (current) use of aspirin; Z79.899 Other long term (current) drug therapy

== ENCOUNTER 2021-04-06 13:37 | Inpatient (IN) | payer MEDICAID ==
[~2021-04-06] VITALS: Ht 152.4 cm; Wt 58.9 kg
[~2021-04-06 13:37] MED LIST changes: +BROVANA15 MCG/2 M INH; +KLOR-CON 1010 MEQ PO; +LEVOFLOXACIN250 MG PO; +TESSALON PERLE100 MG PO
[2021-04-06 14:00] VITALS: BP 172/69
[2021-04-06 14:36] LABS: ABSOLUTE BASOPHILS 0.1 thou/uL (0.0-0.2); ABSOLUTE EOSINOPHILS 1.4 thou/uL (0.0-0.7); ABSOLUTE LYMPHOCYTES 2.3 thou/uL (0.8-5.3); ABSOLUTE MONOCYTES 0.6 thou/uL (0.0-1.2); ABSOLUTE NEUTROPHILS 2.3 thou/uL (1.6-8.1); BASOPHILS 1.4 %; EOSINOPHILS 20.2 %; HEMATOCRIT 33.5 % (37.0-47.0); HEMOGLOBIN 10.8 gm/dL (12.0-15.0); LYMPHOCYTES 34.3 %; MCH 25.6 pg (26.0-34.0); MCHC 32.1 g/dL (28.0-37.0); MCV 79.5 fL (80.0-100.0); MONOCYTES 9.4 %; MPV 8.1 fl. (7.2-11.1); NUCLEATED RBCS 0 /100WBC; PLATELET COUNT* 296 thou/uL (150-400); POLYS 34.7 %; RBC 4.21 mil/uL (4.20-5.00); RDW-CV 17.4 % (10.5-14.5); WBC 6.7 thou/uL (4.0-11.0)
[2021-04-06 14:39] LABS: CALCIUM 8.7 mg/dL (8.5-10.1)
[2021-04-06 14:42] LABS: APTT 26.1 Seconds (25.0-31.3); PROTIME 11.1 Seconds (9.20-11.50)
[2021-04-06 14:50] LABS: ALBUMIN 3.8 g/dL (3.4-5.0); TOTAL BILIRUBIN 0.5 mg/dL (<0.1-1.0); TOTAL PROTEIN 7.7 g/dL (6.4-8.2)
--- NOTE | 2021-04-06 15:12 | EKG ---
[place] [address] ELECTROCARDIOGRAM REPORT Name: GLEN SÁNCHEZ Room: [facility]#: [id number] Admission: 04/06/21 Attend Phys: Discharge: Date of : 40 Date of Service: 04/06/21 1443 Report #: [id number] THIS REPORT FOR: //name// [facility] ED Test Date: 2021-04-06 Test Time: 14:43:16 Pat Name: GLEN SÁNCHEZ Department: Room: Gender: F Steel Pourer Helper: CABALLERO : 1940 Requested By: Edwin Rincon Order Number: [id number] MD: Beau Ireland Measurements Intervals [place] Rate: 62 P: -51 IN: 242 QRS: 0 QRSD: 107 T: 30 QT: 402 QTc: 409 Interpretive Statements Sinus or ectopic atrial rhythm Prolonged IN interval Low voltage, precordial leads Compared to ECG 01/15/2021 18:13:08 no change Electronically Signed On 04-06-2021 15:12:13 CDT by Beau Irleand [email or web address] <ELECTRONICALLY SIGNED> By: Beau Ireland MD, [facility] 04/06/21 1512 1443 1443 Beau Ireland MD, [facility] /EPI
[2021-04-06 21:07] VITALS: BP 162/70
[2021-04-06 21:30] VITALS: BP 120/60
[2021-04-07 00:15] VITALS: BP 168/95
[2021-04-07 08:02] VITALS: BP 160/67
[2021-04-07 16:00] VITALS: BP 117/51
[2021-04-07 20:00] VITALS: BP 143/63
[2021-04-08 07:34] VITALS: BP 139/65
[2021-04-08 07:54] LABS: HEMOGLOBIN 9.3 gm/dL (12.0-15.0); MCH 25.4 pg (26.0-34.0); MCHC 32.1 g/dL (28.0-37.0); MCV 79.1 fL (80.0-100.0); MPV 8.1 fl. (7.2-11.1); RBC 3.67 mil/uL (4.20-5.00); RDW-CV 17.6 % (10.5-14.5); WBC 5.2 thou/uL (4.0-11.0)
[2021-04-08 08:17] LABS: ALBUMIN 3.2 g/dL (3.4-5.0); CALCIUM 8.4 mg/dL (8.5-10.1); MAGNESIUM 1.2 mg/dL (1.8-2.4); POTASSIUM 4.9 mmol/L (3.5-5.1); TOTAL BILIRUBIN 0.4 mg/dL (<0.1-1.0); TOTAL PROTEIN 6.6 g/dL (6.4-8.2)
[2021-04-08 16:00] VITALS: BP 144/65
[2021-04-08] MEDS ORDERED: LEVOFLOXACIN500 MG PO (17:50)
[2021-04-08] MEDS ORDERED: PREDNISONE 10 M10 MG PO (17:50)
== END 2021-04-08 18:30 | disposition home or self-care (01) | DRG 189 ==
LOC: M.ERS 13:37 → M.TBA-ER 16:32 → M.ORTHSURG 16:32
PROVIDERS: Emergency Medicine; Internal Medicine; ADMIT Internal Medicine; ATTEND Internal Medicine
DX: J96.01 Acute respiratory failure with hypoxia (principal); J45.901 Unspecified asthma with (acute) exacerbation; E11.9 Type 2 diabetes mellitus without complications; E78.5 Hyperlipidemia, unspecified; I10 Essential (primary) hypertension; Z20.822 Contact with and (suspected) exposure to COVID-19; Z79.82 Long term (current) use of aspirin; Z79.899 Other long term (current) drug therapy

== ENCOUNTER 2021-04-11 16:16 | Inpatient (IN) | payer MEDICAID ==
[~2021-04-11] VITALS: Ht 157.5 cm; Wt 56.7 kg
--- NOTE | ~2021-04-11 | CON ---
[address] [address] CONSULTATION Name: GLEN SÁNCHEZ Room: [address] ADM IN M.R.#: [id number] Admission: 04/12/21 Attend Phys: Dasha Hernandez MD Discharge: Date of : 40 Report #: [id number] THIS REPORT FOR: cc: Ed Conrad MD, Usman MD Khosla,Anthony Delgado MD ~ DATE OF CONSULTATION: 04/12/2021 HISTORY OF PRESENT ILLNESS: This is an 80-year-old female patient who was evaluated by me for very poorly defined history. She gives a history that she is chronically constipated. Sometimes, she will not have a bowel movement for 5-6 days. She was in the hospital and then she went to home. She was not having any bowel movement and she got some medication for that. Finally, she had a bowel movement and after that she felt mentally good, but had some nausea, vomiting and dizziness. It is not clear what the blood pressure was. To me, she tells me she did not pass out, but she was just dizzy. This passed off and then she became better. She uses language, which is typically used to describe that she felt very anxious before this happened. REVIEW OF SYSTEMS: Review of systems indicated that she said she used to go to [facility]. Something happened there and she stopped going to [facility]. She said they did multiple testing of her head in [facility]. She also believes she had an MRI of the brain done there. She had multiple admissions here and she has been admitted and she has been discharged multiple times even this year. She has been admitted with hypertension with chest pain. She had some falls. She has some productive cough. She had some shortness of breath at one time. That was a relevant 14-point review of systems. PAST MEDICAL HISTORY: Positive for multiple symptoms. She said she had been to [facility] multiple times, but I do not have those records and I do not know why she was admitted there. FAMILY HISTORY: Unremarkable. SOCIAL HISTORY: She says she does not smoke or drink any alcohol. When I asked her if she has any heart issues, she says were there for the stroke. PHYSICAL EXAMINATION: Examinations indicate her speech looks intact. Her memory look intact according to her. Cranial nerve examinations appear unremarkable. She moves all 4 extremities. She did pretty well with the position sense. Reflexes may be somewhat diminished and symmetrical. I could not look at the fundus. Tone looks symmetrical. Examination was somewhat difficult, but I do not think there is any focality[place] [address] CONSULTATION Name: GLEN SÁNCHEZ Room: [address] IN M.R.#: [id number] Admission: 04/12/21 Attend Phys: Dasha Hernandez MD Discharge: Date of : 40 Report #: [id number] sign. There is no carotid bruit. Cardiac examination appear unremarkable. No respiratory difficulty was noticed. She does not have any edema, cyanosis or jaundice. Blood pressure is 116/87, respiration is 17, pulse is 106 and it has varied a lot, temperature is 98.0. She is moderately built individual and her hearing and vision are adequate. Her CT scan was reviewed and that does not show any acute changes. She is slightly anemic with a slightly low hemoglobin. GFR is normal. She did have a B12 level and TSH and that is also unremarkable. IMPRESSION AND PLAN: An episode of dizziness, which is unlikely to be of neurological etiology. I will suggest working up for other etiologies like cardiac etiology, addressing her anxiety issue which appeared to be present. I will get an EEG done and I will get the record from [facility] and see if MRI, a carotid Doppler or MRA were already done. If not, we can do that to complete the workup, but from all indication, it looks unlikely that there is any neurological etiology for the patient's symptoms, but we will rule it out. Thank you very much for this referral. By: 1635 09Anthony Paul MD /gail
[~2021-04-11 16:16] MED LIST changes: +LEVOFLOXACIN500 MG PO; +PREDNISONE 10 M10 MG PO
[2021-04-11 16:20] VITALS: BP 121/47
[2021-04-11 17:16] LABS: ABSOLUTE BASOPHILS 0.1 thou/uL (0.0-0.2); ABSOLUTE EOSINOPHILS 0.7 thou/uL (0.0-0.7); ABSOLUTE LYMPHOCYTES 3.5 thou/uL (0.8-5.3); ABSOLUTE MONOCYTES 1.1 thou/uL (0.0-1.2); ABSOLUTE NEUTROPHILS 4.7 thou/uL (1.6-8.1); BASOPHILS 0.8 %; EOSINOPHILS 7.3 %; HEMATOCRIT 32.1 % (37.0-47.0); HEMOGLOBIN 10.5 gm/dL (12.0-15.0); LYMPHOCYTES 35.1 %; MCH 26.5 pg (26.0-34.0); MCHC 32.7 g/dL (28.0-37.0); MCV 80.9 fL (80.0-100.0); MONOCYTES 10.5 %; MPV 8.4 fl. (7.2-11.1); NUCLEATED RBCS 0 /100WBC; PLATELET COUNT* 285 thou/uL (150-400); POLYS 46.3 %; RBC 3.96 mil/uL (4.20-5.00); RDW-CV 17.8 % (10.5-14.5); WBC 10.1 thou/uL (4.0-11.0)
[2021-04-11 17:27] LABS: CALCIUM 8.1 mg/dL (8.5-10.1); POTASSIUM 4.8 mmol/L (3.5-5.1)
[2021-04-11 17:32] LABS: ALBUMIN 3.1 g/dL (3.4-5.0); TOTAL BILIRUBIN 0.5 mg/dL (<0.1-1.0); TOTAL PROTEIN 6.4 g/dL (6.4-8.2)
[2021-04-11 19:15] LABS: URINE BILIRUBIN NEGATIVE (Negative); URINE BLOOD TRACE (Negative); URINE CLARITY CLEAR; URINE COLOR YELLOW; URINE GLUCOSE-RANDOM NEGATIVE (Negative); URINE KETONES NEGATIVE (Negative); URINE LEUKOCYTES-REFLEX NEGATIVE (Negative); URINE NITRITE-REFLEX NEGATIVE (Negative); URINE PROTEIN NEGATIVE (Negative); URINE UROBILINOGEN 0.2 E.U./dl (0.2-1.0)
[2021-04-11 22:29] VITALS: BP 130/55
[2021-04-11 23:00] VITALS: BP 142/68
[2021-04-12 04:00] VITALS: BP 143/65
[2021-04-12 12:12] VITALS: BP 116/87
--- NOTE | 2021-04-12 12:19 | EKG ---
[place] [address] ELECTROCARDIOGRAM REPORT Name: GLEN SÁNCHEZ Room: [address] ADM IN M.R.#: [id number] Admission: 04/12/21 Attend Phys: Dasha Hernandez, Discharge: Date of : 40 Date of Service: 04/11/21 1748 Report #: [id number] THIS REPORT FOR: //name// [facility] ED Test Date: 2021-04-11 Test Time: 17:48:07 Pat Name: GLEN SÁNCHEZ Department: Room: [facility] Gender: F News Producer: ANA : 1940 Requested By: Jossy Powers Order Number: [id number] MD: Rayshawn Kline Measurements Intervals [place] Rate: 63 P: -20 TX: 229 QRS: -9 QRSD: 99 T: 23 QT: 397 QTc: 407 Interpretive Statements Sinus rhythm Prolonged [place] interval Compared to ECG 04/06/2021 14:43:16 Ectopic atrial rhythm no longer present Electronically Signed On 04-12-2021 12:18:49 CDT by Rayshawn Kline [email or web address] <ELECTRONICALLY SIGNED> By: Rayshawn Kline MD, FAC 04/12/21 1218 1748 1748 Rayshawn Kline MD, [facility] /EPI
[2021-04-12 17:36] VITALS: BP 170/63
[2021-04-12 23:48] VITALS: BP 145/49
[2021-04-13 04:46] VITALS: BP 156/72
[2021-04-13 07:57] LABS: HEMATOCRIT 28.2 % (37.0-47.0); HEMOGLOBIN 9.2 gm/dL (12.0-15.0); MCHC 32.7 g/dL (28.0-37.0); MCV 79.5 fL (80.0-100.0); NUCLEATED RBCS 0 /100WBC; PLATELET COUNT* 244 thou/uL (150-400); RBC 3.54 mil/uL (4.20-5.00); RDW-CV 17.5 % (10.5-14.5); WBC 6.8 thou/uL (4.0-11.0)
[2021-04-13 08:33] LABS: CALCIUM 7.5 mg/dL (8.5-10.1); CREATININE 0.8 mg/dL (0.6-1.3); POTASSIUM 3.1 mmol/L (3.5-5.1)
[2021-04-13 09:00] VITALS: BP 133/50
[2021-04-13 09:04] LABS: ABSOLUTE EOSINOPHILS 0.4 thou/uL (0.0-0.7); ABSOLUTE LYMPHOCYTES 2.2 thou/uL (0.8-5.3); ABSOLUTE MONOCYTES 0.7 thou/uL (0.0-1.2); ABSOLUTE NEUTROPHILS 3.4 thou/uL (1.6-8.1); ANISOCYTOSIS 2+; PLATELET ESTIMATE ADEQUATE
[2021-04-13 09:05] LABS: BURR CELLS 2+
[2021-04-13 12:00] VITALS: BP 110/51
[2021-04-13] MEDS ORDERED: XANAX 0.25 MG0.25 MG PO (12:54)
[2021-04-13 16:00] VITALS: BP 156/77
[2021-04-13 20:00] VITALS: BP 135/72
[2021-04-14] VITALS: BP 130/51
[2021-04-14 04:00] VITALS: BP 147/93
[2021-04-14 08:00] VITALS: BP 168/72
[2021-04-14 11:50] VITALS: BP 168/72
== END 2021-04-14 12:30 | disposition home or self-care (01) | DRG 312 ==
LOC: M.ERS 16:16 → M.ORTHSURG 18:53 → M.TBA-ER 18:53 → M.ORTHSURG 22:35
PROVIDERS: Internal Medicine; Nurse Practitioner Family; ADMIT Internal Medicine; ATTEND Internal Medicine
DX: R55 Syncope and collapse (principal); J45.909 Unspecified asthma, uncomplicated; E78.5 Hyperlipidemia, unspecified; F41.9 Anxiety disorder, unspecified; K59.00 Constipation, unspecified; R10.13 Epigastric pain; E11.9 Type 2 diabetes mellitus without complications; I10 Essential (primary) hypertension; Z20.822 Contact with and (suspected) exposure to COVID-19; Z23 Encounter for immunization; Z79.899 Other long term (current) drug therapy; Z82.49 Family history of ischemic heart disease and other diseases of the circulatory system; Z83.49 Family history of other endocrine, nutritional and metabolic diseases; Z86.16 Personal history of COVID-19

== ENCOUNTER 2021-06-10 13:13 | Inpatient (IN) | payer MEDICAID ==
[~2021-06-10] VITALS: Ht 157.5 cm; Wt 57.6 kg
[2021-06-10 13:20] VITALS: BP 177/80
[2021-06-10 14:48] LABS: HEMATOCRIT 30.4 % (37.0-47.0); HEMOGLOBIN 9.8 gm/dL (12.0-15.0); MCH 26.1 pg (26.0-34.0); MCHC 32.2 g/dL (28.0-37.0); MPV 8.4 fl. (7.2-11.1); NUCLEATED RBCS 0 /100WBC; PLATELET COUNT* 253 thou/uL (150-400); RBC 3.76 mil/uL (4.20-5.00); RDW-CV 16.4 % (10.5-14.5); WBC 8.5 thou/uL (4.0-11.0)
[2021-06-10 15:00] LABS: CALCIUM 8.2 mg/dL (8.5-10.1); CREATININE 0.9 mg/dL (0.6-1.3); POTASSIUM 3.2 mmol/L (3.5-5.1)
[2021-06-10 15:10] LABS: ALBUMIN 3.1 g/dL (3.4-5.0); TOTAL BILIRUBIN 0.4 mg/dL (<0.1-1.0); TOTAL PROTEIN 6.8 g/dL (6.4-8.2)
[2021-06-10 15:48] LABS: ABSOLUTE BASOPHILS 0.3 thou/uL (0.0-0.2); ABSOLUTE MONOCYTES 0.7 thou/uL (0.0-1.2); ABSOLUTE NEUTROPHILS 3.5 thou/uL (1.6-8.1); PLATELET ESTIMATE ADEQUATE
[2021-06-10 18:45] VITALS: BP 160/74
[2021-06-10 21:00] VITALS: BP 112/63; BP 160/74
[2021-06-11 04:00] VITALS: BP 154/78
[2021-06-11 08:00] VITALS: BP 156/78
[2021-06-11 08:13] LABS: HEMATOCRIT 31.9 % (37.0-47.0); HEMOGLOBIN 10.2 gm/dL (12.0-15.0); MCH 25.6 pg (26.0-34.0); MCV 80.2 fL (80.0-100.0); RBC 3.98 mil/uL (4.20-5.00); RDW-CV 16.6 % (10.5-14.5); WBC 4.9 thou/uL (4.0-11.0)
[2021-06-11 08:34] LABS: ALBUMIN 3.1 g/dL (3.4-5.0); CALCIUM 8.2 mg/dL (8.5-10.1); MAGNESIUM 1.1 mg/dL (1.8-2.4); TOTAL BILIRUBIN 0.4 mg/dL (<0.1-1.0); TOTAL PROTEIN 6.7 g/dL (6.4-8.2)
[2021-06-11 14:55] VITALS: BP 141/65
--- NOTE | 2021-06-11 15:18 | EKG ---
[place] [address] ELECTROCARDIOGRAM REPORT Name: GLEN SÁNCHEZ Room: [address] ADM IN M.R.#: [id number] Admission: 06/10/21 Attend Phys: Dasha Hernandez, Discharge: Date of : 40 Date of Service: 06/10/21 1323 Report #: [id number] THIS REPORT FOR: //name// [facility] ED Test Date: 2021-06-10 Test Time: 13:23:54 Pat Name: GLEN SÁNCHEZ Department: Room: [facility] Gender: F Senior Research Consultant: : 1940 Requested By: Patrick Augustin Order Number: [id number] MD: Orestes Valdivia Measurements Intervals [place] Rate: 67 P: -32 MA: 227 QRS: 7 QRSD: 104 T: 38 QT: 399 QTc: 422 Interpretive Statements Sinus rhythm Prolonged MA interval Baseline wander in lead(s) V5,V6 Compared to ECG 04/11/2021 17:48:07 No significant changes Electronically Signed On 06-11-2021 15:18:32 VP PATIENT by Orestes Valdivia [email or web address] <ELECTRONICALLY SIGNED> By: Orestes Valdivia MD, FACC 06/11/21 1518 1323 1323 Orestes Valdivia MD, FAC /EPI
[2021-06-11 19:04] VITALS: BP 154/71
[2021-06-11 19:50] VITALS: BP 157/75
[2021-06-11 19:50] LABS: MAGNESIUM 1.1 mg/dL (1.8-2.4)
[2021-06-11 19:53] LABS: POTASSIUM 4.3 mmol/L (3.5-5.1)
[2021-06-12 00:33] VITALS: BP 172/61
[2021-06-12 08:00] VITALS: BP 166/62
[2021-06-12 08:41] LABS: HEMATOCRIT 31.1 % (37.0-47.0); MCH 25.8 pg (26.0-34.0); MCHC 32.1 g/dL (28.0-37.0); MCV 80.2 fL (80.0-100.0); RBC 3.88 mil/uL (4.20-5.00); RDW-CV 17.3 % (10.5-14.5); WBC 9.6 thou/uL (4.0-11.0)
[2021-06-12 08:57] LABS: CALCIUM 8.2 mg/dL (8.5-10.1); MAGNESIUM 1.4 mg/dL (1.8-2.4); POTASSIUM 4.4 mmol/L (3.5-5.1)
[2021-06-12 20:00] VITALS: BP 149/71
[2021-06-13 05:35] LABS: HEMATOCRIT 29.7 % (37.0-47.0); HEMOGLOBIN 9.5 gm/dL (12.0-15.0); MCH 25.9 pg (26.0-34.0); MCHC 32.1 g/dL (28.0-37.0); MCV 80.7 fL (80.0-100.0); MPV 8.8 fl. (7.2-11.1); RBC 3.68 mil/uL (4.20-5.00); RDW-CV 17.2 % (10.5-14.5); WBC 10.1 thou/uL (4.0-11.0)
[2021-06-13 05:52] LABS: CALCIUM 8.2 mg/dL (8.5-10.1); CREATININE 0.9 mg/dL (0.6-1.3); MAGNESIUM 1.7 mg/dL (1.8-2.4); POTASSIUM 3.7 mmol/L (3.5-5.1)
[2021-06-13 08:30] VITALS: BP 132/60
[2021-06-13] MEDS ORDERED: PREDNISONE 10 M10 MG PO (09:48)
[2021-06-13] MEDS ORDERED: IPRAT-ALBUT 0.5-3 ML INH (09:48)
[2021-06-13] MEDS ORDERED: BROVANA15 MCG/2 M INH (09:48)
[2021-06-13] MEDS ORDERED: BUDESONIDE0.5 MG/2 M NEB (09:48)
[2021-06-13 13:40] VITALS: BP 132/60
[2021-06-13 14:02] VITALS: BP 132/60
== END 2021-06-13 16:11 | disposition home health service (06) | DRG 189 ==
LOC: M.ERS 13:13 → M.TBA-ER 14:41 → M.2W 21:34 → M.3W 06-12 18:24
PROVIDERS: Family Medicine; ADMIT Internal Medicine; ATTEND Internal Medicine
DX: J96.01 Acute respiratory failure with hypoxia (principal); J45.901 Unspecified asthma with (acute) exacerbation; Z20.822 Contact with and (suspected) exposure to COVID-19; I10 Essential (primary) hypertension; E11.9 Type 2 diabetes mellitus without complications; Z86.16 Personal history of COVID-19; Z79.82 Long term (current) use of aspirin; Z79.899 Other long term (current) drug therapy

== ENCOUNTER 2021-08-06 12:46 | Emergency (ER) | payer MEDICAID ==
[~2021-08-06] VITALS: Ht 152.4 cm; Wt 72.6 kg
[~2021-08-06 12:46] MED LIST changes: +BUDESONIDE0.5 MG/2 M NEB
[2021-08-06 15:11] LABS: ABSOLUTE BASOPHILS 0.1 thou/uL (0.0-0.2); ABSOLUTE EOSINOPHILS 1.2 thou/uL (0.0-0.7); ABSOLUTE MONOCYTES 0.6 thou/uL (0.0-1.2); ABSOLUTE NEUTROPHILS 2.4 thou/uL (1.6-8.1); BASOPHILS 0.8 %; EOSINOPHILS 18.8 %; HEMATOCRIT 31.2 % (37.0-47.0); HEMOGLOBIN 10.2 gm/dL (12.0-15.0); LYMPHOCYTES 32.7 %; MCH 26.4 pg (26.0-34.0); MCHC 32.7 g/dL (28.0-37.0); MCV 80.6 fL (80.0-100.0); MONOCYTES 9.9 %; MPV 7.5 fl. (7.2-11.1); NUCLEATED RBCS 0 /100WBC; PLATELET COUNT* 250 thou/uL (150-400); POLYS 37.8 %; RBC 3.87 mil/uL (4.20-5.00); RDW-CV 17.8 % (10.5-14.5); WBC 6.3 thou/uL (4.0-11.0)
[2021-08-06 15:18] LABS: CALCIUM 8.3 mg/dL (8.5-10.1); CREATININE 0.8 mg/dL (0.6-1.3); POTASSIUM 3.3 mmol/L (3.5-5.1)
[2021-08-06 15:26] LABS: ALBUMIN 3.2 g/dL (3.4-5.0); TOTAL BILIRUBIN 0.3 mg/dL (<0.1-1.0); TOTAL PROTEIN 6.9 g/dL (6.4-8.2)
[2021-08-06] MEDS ORDERED: TESSALON PERLE100 MG PO (16:44)
[2021-08-06] MEDS ORDERED: VENTOLIN HFA 1818 GM INH (16:44)
[2021-08-06] MEDS ORDERED: ZOFRAN ODT4 MG DISSOLVE (16:44)
[2021-08-06 17:11] VITALS: BP 117/63
--- NOTE | 2021-08-07 13:15 | EKG ---
[place] [address] ELECTROCARDIOGRAM REPORT Name: GLEN SÁNCHEZ Room: [facility]#: [id number] Admission: 08/06/21 Attend Phys: Discharge: 08/06/21 Date of : 40 Date of Service: 08/06/21 1626 Report #: [id number] THIS REPORT FOR: //name// [facility] ED Test Date: 2021-08-06 Test Time: 16:26:35 Pat Name: GLEN SÁNCHEZ Department: Room: Gender: F Retail Services Professional: [facility] : 1940 Requested By: Eric Cagle Order Number: [id number] MD: Orestes Valdivia Measurements Intervals [place] Rate: 57 P: -5 OK: 263 QRS: 7 QRSD: 104 T: 37 QT: 425 QTc: 414 Interpretive Statements Sinus rhythm Prolonged [place] interval Low voltage, precordial leads Compared to ECG 06/10/2021 13:23:54 Low QRS voltage now present Electronically Signed On 08-07-2021 13:15:01 SCALDER by Orestes Valdivia [email or web address] <ELECTRONICALLY SIGNED> By: Orestes Valdivia MD, FACC 08/07/21 1315 1626 1626 Orestes Valdivia MD, [facility] /EPI
== END 2021-08-06 17:05 | disposition home or self-care (01) ==
LOC: M.ERS 12:46
PROVIDERS: Emergency Medicine Emergency Medical Services
DX: U07.1 COVID-19 (principal); E11.9 Type 2 diabetes mellitus without complications; I10 Essential (primary) hypertension; J45.909 Unspecified asthma, uncomplicated; Z86.16 Personal history of COVID-19; Z79.899 Other long term (current) drug therapy; Z79.82 Long term (current) use of aspirin; Z91.041 Radiographic dye allergy status